=== PATIENT | female | born 1995 | race Asian ===

== ENCOUNTER 2016-07-25 16:30 | Emergency (ER) | payer OTHER ==
[~2016-07-25] VITALS: Ht 160 cm; Wt 42.3 kg
[2016-07-25 19:20] VITALS: BP 103/68
== END 2016-07-25 19:22 | disposition home or self-care (01) ==
LOC: ED 17:19
DX: O20.0 Threatened abortion (principal); Z3A.09 9 weeks gestation of pregnancy
CPT/HCPCS: 36415; 76801; 81001; 84702; 85025; 86901; 87086; 99285